=== PATIENT | female | born 2005 | race Caucasian/White ===

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

== ENCOUNTER 2025-02-06 12:19 | Emergency (ER) | payer OTHER ==
[2025-02-06 12:45] VITALS: BP 123/83; PULSE 78; RESP 18; TEMP 98.7; BMI 40.7
[2025-02-06 14:06] LABS: HCG,QUALITATIVE URINE Positive
[2025-02-06 14:09] LABS: EPI CELLS 13 /uL (0-25.1); HYALINE CASTS 1 /uL (0-3.1); URINE APPEARANCE CLOUDY; URINE BACTERIA 780 /uL (0-1359); URINE BILIRUBIN NEGATIVE (NEGATIVE); URINE COLOR YELLOW; URINE GLUCOSE (UA) NEGATIVE (NEGATIVE); URINE KETONE NEGATIVE (NEGATIVE); URINE LEUK ESTERASE NEGATIVE (NEGATIVE); URINE NITRITE NEGATIVE (NEGATIVE); URINE PROTEIN NEGATIVE (NEGATIVE); URINE RBC 19 /uL (0-23.9); URINE UROBILINOGEN 0.2 mg/dL (0.2-1.0); URINE WBC 6 /uL (0-25.8)
[2025-02-06] MEDS ORDERED: CEPHALEXIN MONOHYDRATE 500 MG CAPSULE (UD) ONE (15:03)
[2025-02-06 15:09] LABS: ABSOLUTE IMMATURE GRANULOCYTES 0.02 x10^3/uL (0.0-0.031); BASOPHILS # 0.02 x10^3/uL (0.01-0.08); EOSINOPHIL % 0.6 % (0.7-5.8); EOSINOPHILS # 0.04 x10^3/uL (0.04-0.36); HEMATOCRIT 36.5 % (34.1-44.9); HEMOGLOBIN 11.5 g/dL (11.2-15.7); MCHC 31.5 g/dl (32.2-35.5); MEAN CELL VOLUME 81.7 fl (79.4-94.8); MEAN PLT VOLUME 8.9 fl (9.4-12.3); MONOCYTE # 0.35 x10^3/uL (0.24-0.86); MONOCYTE % 5.3 % (4.7-12.5); PLATELET COUNT 336 x10^3/uL (182-369); RDW 15.1 % (12.1-16.5)
[2025-02-06] MEDS: CEPHALEXIN MONOHYDRATE 500 MG CAPSULE (UD) PO ONE (15:11)
[2025-02-06 15:18] LABS: HIV INTERPRETATION NEGATIVE (NEGATIVE)
[2025-02-06 15:19] LABS: HCV DIAGNOSTIC IN-HOUSE W/RFLX NON-REACTIVE (NONREACTIVE)
[2025-02-06 15:30] LABS: POTASSIUM 3.8 mmol/L (3.5-5.1)
[2025-02-06 15:32] LABS: CALCIUM 9.1 mg/dL (8.5-10.1)
[2025-02-06 15:33] LABS: ALBUMIN 3.7 g/dl (3.4-5.0); BLOOD UREA NITROGEN 7.4 mg/dL (7-18)
[2025-02-06 15:36] LABS: CREATININE 0.7 mg/dL (0.55-1.3)
[2025-02-06 15:38] LABS: BILIRUBIN,TOTAL 0.5 mg/dL (0.2-1); TOT PROT 7.6 g/dl (6.4-8.2)
== END 2025-02-06 16:25 | disposition home or self-care (01) ==
LOC: JER 12:19
DX: O20.9 Hemorrhage in early pregnancy, unspecified (principal); O26.891 Other specified pregnancy related conditions, first trimester; R10.2 Pelvic and perineal pain; Z3A.00 Weeks of gestation of pregnancy not specified
CPT/HCPCS: 36415; 76817-TC; 80053; 81003; 84702; 84703; 85025; 86803; 86850; 86900; 86901; 87086; 87389; 99284-25

== ENCOUNTER 2025-02-08 08:28 | Emergency (ER) | payer OTHER ==
[2025-02-08 08:34] VITALS: BP 120/71; PULSE 76; RESP 18; TEMP 98.8; BMI 33.1
[2025-02-08] MEDS ORDERED: ACETAMINOPHEN 325 MG TABLET (FP) ONE (09:20)
[2025-02-08] MEDS: ACETAMINOPHEN 325 MG TABLET (FP) PO ONE (09:21)
[2025-02-08 09:35] LABS: ABSOLUTE IMMATURE GRANULOCYTES 0.05 x10^3/uL (0.0-0.031); BASOPHILS # 0.02 x10^3/uL (0.01-0.08); EOSINOPHIL % 0.9 % (0.7-5.8); EOSINOPHILS # 0.08 x10^3/uL (0.04-0.36); HEMATOCRIT 36.3 % (34.1-44.9); HEMOGLOBIN 11.4 g/dL (11.2-15.7); MCHC 31.4 g/dl (32.2-35.5); MEAN CELL VOLUME 81.6 fl (79.4-94.8); MEAN PLT VOLUME 9.2 fl (9.4-12.3); MONOCYTE # 0.44 x10^3/uL (0.24-0.86); MONOCYTE % 5.1 % (4.7-12.5); PLATELET COUNT 331 x10^3/uL (182-369); RDW 14.9 % (12.1-16.5)
[2025-02-08 09:56] LABS: POTASSIUM 4.1 mmol/L (3.5-5.1)
[2025-02-08 09:57] LABS: ALBUMIN 3.6 g/dl (3.4-5.0); CALCIUM 9.4 mg/dL (8.5-10.1)
[2025-02-08 10:01] LABS: CREATININE 0.7 mg/dL (0.55-1.3)
[2025-02-08 10:02] LABS: TOT PROT 7.6 g/dl (6.4-8.2)
[2025-02-08 10:04] LABS: BILIRUBIN,TOTAL 0.2 mg/dL (0.2-1)
== END 2025-02-08 11:27 | disposition home or self-care (01) ==
LOC: JER 08:28 → JERFT 08:28
DX: O03.9 Complete or unspecified spontaneous abortion without complication (principal)
CPT/HCPCS: 36415; 76817-TC; 80053; 84702; 85025; 86850; 86900; 86901; 99284-25